=== PATIENT | female | born 2000 | race African-American/Black ===

== ENCOUNTER 2018-06-25 10:49 | Emergency (ER) | payer SELFPAY ==
[2018-06-25] MEDS ORDERED: cefTRIAXone\\ROCEPHIN 1 GM VIAL ONE ×2 (11:18→11:23)
[2018-06-25] MEDS ORDERED: Lidocaine 1% PF 5 ML VIAL ONE ×2 (11:18→11:21)
[2018-06-25] MEDS ORDERED: Azithromycin 250 MG TAB ONE (11:18)
[2018-06-25] MEDS ORDERED: cefTRIAXone\\ROCEPHIN 250 MG VIAL ONE (11:24)
== END 2018-06-25 11:37 | disposition home or self-care (01) ==
LOC: ERS 10:49
DX: Z20.2 Contact with and (suspected) exposure to infections with a predominantly sexual mode of transmission (principal)
CPT/HCPCS: 96372; J0696; J2001